=== PATIENT | male | born 2000 | race Caucasian/White ===

== ENCOUNTER 2021-09-11 13:40 | Outpatient (REF) | payer MEDICAID, SELFPAY ==
--- NOTE | ~2021-09-11 | XR_ITS ---
EXAMINATION: XR CERVICAL SPINE XR THORACIC SPINE XR LUMBAR SPINE CLINICAL INFORMATION: Pain. COMPARISON: None. TECHNIQUE: Cervical spine 5 views, thoracic spine 3 views, lumbar spine 3 views. FINDINGS: Cervical Spine: There is mild straightening of cervical lordosis. The vertebral heights and alignment are normal. There is loss of C4-C5 and C7-T1 disc heights. The rest of the disc heights are normal. The craniovertebral junction and the C1-C2 alignment are normal. No visible acute fracture, dislocation or subluxation seen. The prevertebral soft tissues are normal. The neural foramina are bilaterally patent. Thoracic Spine: There is normal thoracic kyphosis. The vertebral heights, alignment and disc heights are normal. There is no visible acute fracture, dislocation or subluxation seen. The paravertebral soft tissues are normal. Lumbar Spine: There is normal lumbar lordosis. The vertebral heights, alignment and disc heights are normal. No lytic or sclerotic process seen. The paravertebral soft tissues are normal. XR/XR lumbar spine 2-3V IMPRESSION: Degenerative disc changes C4-C5 and C7-T1 disc levels without any visible acute fracture or dislocation. The neural foramina are patent bilaterally. Unremarkable thoracic/dorsal spine exam. Unremarkable lumbar spine exam.
--- NOTE | ~2021-09-11 | XR_ITS ---
EXAMINATION: XR CERVICAL SPINE XR THORACIC SPINE XR LUMBAR SPINE CLINICAL INFORMATION: Pain. COMPARISON: None. TECHNIQUE: Cervical spine 5 views, thoracic spine 3 views, lumbar spine 3 views. FINDINGS: Cervical Spine: There is mild straightening of cervical lordosis. The vertebral heights and alignment are normal. There is loss of C4-C5 and C7-T1 disc heights. The rest of the disc heights are normal. The craniovertebral junction and the C1-C2 alignment are normal. No visible acute fracture, dislocation or subluxation seen. The prevertebral soft tissues are normal. The neural foramina are bilaterally patent. Thoracic Spine: There is normal thoracic kyphosis. The vertebral heights, alignment and disc heights are normal. There is no visible acute fracture, dislocation or subluxation seen. The paravertebral soft tissues are normal. Lumbar Spine: There is normal lumbar lordosis. The vertebral heights, alignment and disc heights are normal. No lytic or sclerotic process seen. The paravertebral soft tissues are normal. XR/XR thoracic spine 3V IMPRESSION: Degenerative disc changes C4-C5 and C7-T1 disc levels without any visible acute fracture or dislocation. The neural foramina are patent bilaterally. Unremarkable thoracic/dorsal spine exam. Unremarkable lumbar spine exam.
--- NOTE | ~2021-09-11 | XR_ITS ---
EXAMINATION: XR ELBOW, RIGHT XR ELBOW, LEFT CLINICAL INFORMATION: Elbow pain. History of wrestling. COMPARISON: 05/25/2018 and 06/15/2017. TECHNIQUE: AP, lateral, and oblique views of each elbow. FINDINGS: RIGHT ELBOW: Again seen is a 2.9 x 2.7 cm region of central lucency and peripheral sclerosis in the subchondral region of the trochlea and capitellum which may correspond to chronic changes of a subchondral infarct or a degenerative geode. A chronic osseous lesion is possible. This appearance is unchanged from prior. The joint is otherwise unremarkable. No joint space narrowing. No fracture or malalignment. No effusion. Soft tissues are normal. LEFT ELBOW: The bones and soft tissues are normal. No fracture or joint effusion. Alignment is anatomic. Joint spaces are maintained. XR/XR elbow LT 2V IMPRESSION: 1. Peripherally sclerotic subchondral abnormality at the left distal humerus is unchanged from 2018 and could correspond to chronic sequela of prior subchondral infarct or degenerative geode. Other non-aggressive osseous lesion is also possible. Consider further assessment with an MRI of the elbow with and without contrast, if warranted clinically. 2. Otherwise, normal radiographs of the elbows.
--- NOTE | ~2021-09-11 | XR_ITS ---
EXAMINATION: XR CERVICAL SPINE XR THORACIC SPINE XR LUMBAR SPINE CLINICAL INFORMATION: Pain. COMPARISON: None. TECHNIQUE: Cervical spine 5 views, thoracic spine 3 views, lumbar spine 3 views. FINDINGS: Cervical Spine: There is mild straightening of cervical lordosis. The vertebral heights and alignment are normal. There is loss of C4-C5 and C7-T1 disc heights. The rest of the disc heights are normal. The craniovertebral junction and the C1-C2 alignment are normal. No visible acute fracture, dislocation or subluxation seen. The prevertebral soft tissues are normal. The neural foramina are bilaterally patent. Thoracic Spine: There is normal thoracic kyphosis. The vertebral heights, alignment and disc heights are normal. There is no visible acute fracture, dislocation or subluxation seen. The paravertebral soft tissues are normal. Lumbar Spine: There is normal lumbar lordosis. The vertebral heights, alignment and disc heights are normal. No lytic or sclerotic process seen. The paravertebral soft tissues are normal. XR/XR cervical spine min 6V IMPRESSION: Degenerative disc changes C4-C5 and C7-T1 disc levels without any visible acute fracture or dislocation. The neural foramina are patent bilaterally. Unremarkable thoracic/dorsal spine exam. Unremarkable lumbar spine exam.
--- NOTE | ~2021-09-11 | XR_ITS ---
EXAMINATION: XR ELBOW, RIGHT XR ELBOW, LEFT CLINICAL INFORMATION: Elbow pain. History of wrestling. COMPARISON: 05/25/2018 and 06/15/2017. TECHNIQUE: AP, lateral, and oblique views of each elbow. FINDINGS: RIGHT ELBOW: Again seen is a 2.9 x 2.7 cm region of central lucency and peripheral sclerosis in the subchondral region of the trochlea and capitellum which may correspond to chronic changes of a subchondral infarct or a degenerative geode. A chronic osseous lesion is possible. This appearance is unchanged from prior. The joint is otherwise unremarkable. No joint space narrowing. No fracture or malalignment. No effusion. Soft tissues are normal. LEFT ELBOW: The bones and soft tissues are normal. No fracture or joint effusion. Alignment is anatomic. Joint spaces are maintained. XR/XR elbow RT 2V IMPRESSION: 1. Peripherally sclerotic subchondral abnormality at the left distal humerus is unchanged from 2018 and could correspond to chronic sequela of prior subchondral infarct or degenerative geode. Other non-aggressive osseous lesion is also possible. Consider further assessment with an MRI of the elbow with and without contrast, if warranted clinically. 2. Otherwise, normal radiographs of the elbows.
== END 2021-09-11 13:41 | disposition home or self-care (01) ==
LOC: HO.XRAY 13:40
PROVIDERS: Absent Provider Registered Nurse Community Health; PCP Internal Medicine; Visit Provider Chiropractor
DX: M25.521 Pain in right elbow (principal); M25.522 Pain in left elbow; M54.2 Cervicalgia; M54.50 Low back pain, unspecified; M54.6 Pain in thoracic spine
CPT/HCPCS: 72052; 72072; 72100; 73070

== ENCOUNTER → 2021-10-09 14:31 | Outpatient (BNVA) | payer MEDICAID, SELFPAY | PROVIDERS: PCP Internal Medicine; Visit Provider Physician Assistant | DX: M87.00 Idiopathic aseptic necrosis of unspecified bone (principal) | CPT/HCPCS: 99202 ==

== ENCOUNTER 2021-10-21 18:04 | Outpatient (REF) | payer MEDICAID, SELFPAY ==
--- NOTE | ~2021-10-21 | MR_ITS ---
EXAMINATION: MR ELBOW WITHOUT CONTRAST, RIGHT CLINICAL INFORMATION: Idiopathic aseptic necrosis. COMPARISON: X-ray 09/11/2021, 05/25/2018. TECHNIQUE: MR of the elbow without contrast was performed on a 1.5 Inna axial scanner. FINDINGS: BONE AND JOINTS: As seen on the prior x-rays, is a region of abnormal signal in the subchondral region of the capitellum-intercondylar region-trochlea. This measures approximately 1.9 cm AP, 2.9 cm transverse, 2 cm craniocaudal. Majority of this focus has bright T1 signal, low signal on T2 fat-sat, suggestive of fat. There is a well-defined sclerotic margin. There is no surrounding edema. The appearance is suggestive of avascular necrosis. Within this region, in the anterior subchondral region of the capitellum/intercondylar region, is a T2 bright focus measuring 0.5 x 0.9 x 1.1 cm (AP, transverse, craniocaudal). There is overlying cartilage thinning present. This focus could be related to evolving changes of more acute/subacute avascular necrosis superimposed on the chronic findings. Differential consideration include superimposed osteochondral lesion or degenerative geode. No loose or unstable osseous fragments identified. Nonaggressive osseous lesion remains a possibility. There is no evidence of acute fracture. Normal alignment at the elbow joint. No significant joint effusion. TENDONS AND MUSCLES: Biceps, brachialis, triceps tendons intact. Common flexor and common extensor tendons intact. No evidence of muscle tear. LIGAMENTS: Ulnar collateral ligament, radial collateral ligament, lateral ulnar collateral ligaments are intact. ULNAR NERVE: Within normal limits. MR/MR elbow RT wo con IMPRESSION: 1. Abnormality in the distal left humerus, in the region of the capitellum-intercondylar region-trochlear. This measures 1.9 x 2.9 x 2 cm. This lesion has a non-aggressive appearance, with non-aggressive features, peripheral sclerotic margin, as described above This has the appearance of a focus of avascular necrosis. A chronic non-aggressive osseous lesion remains a possibility. Within the above focus, in the subchondral region anteriorly, is a 0.5 x 0.9 x 1.1 cm T2 bright focus with peripheral sclerotic margins, with overlying cartilage thinning. This focus could be related to evolving changes of more acute/subacute avascular necrosis superimposed on chronic changes. Differential considerations would include superimposed osteochondral lesion, degenerative geode superimposed on the chronic findings. No loose or unstable fragments are seen. Recommend clinical correlation. Recommend ongoing clinical and radiographic follow-up. Recommend 3-6 month follow-up MRI for reassessment. 2. Tendons tendons intact.
== END 2021-10-21 18:05 | disposition home or self-care (01) ==
LOC: HO.MRI 18:04
PROVIDERS: Visit Provider Physician Assistant
DX: M87.00 Idiopathic aseptic necrosis of unspecified bone (principal)
CPT/HCPCS: 73221

== ENCOUNTER 2022-05-20 15:47 | Outpatient (REF) | payer MEDICAID, SELFPAY | END 2022-05-20 15:48 | disposition home or self-care (01) | LOC: HO.HOSX 15:47 | PROVIDERS: Visit Provider Orthopaedic Surgery | DX: Z13.89 Encounter for screening for other disorder (principal) ==

== ENCOUNTER 2024-05-14 11:24 | Outpatient (REF) | payer MEDICAID, SELFPAY ==
[2024-05-14 13:39] LABS: Estimated Average Glucose 105 mg/dL; Hemoglobin A1C 143.8123 umol/L; Hemoglobin A1c % 5.3 % (<6.0); Total Hemoglobin (HGBA1C) 4187.7587 umol/L
[2024-05-14 13:40] LABS: Alanine Aminotransferase 49 U/L (0-40); Albumin Level 4.3 g/dL (3.5-5.0); Alkaline Phosphatase 58 U/L (39-117); Anion Gap 12 (12-20); Aspartate Amino Transferase 28 U/L (5-37); Bilirubin Total 0.5 mg/dL (0.0-1.0); Blood Urea Nitrogen 12 mg/dL (9-16); Calcium 9.4 mg/dL (8.4-10.2); Carbon Dioxide 30 mmol/L (22-29); Chloride 105 mmol/L (96-108); Cholesterol 236 mg/dL (<200); Estimated Glomerular Filt Rate > 60; Glucose Random 98 mg/dL (60-115); HDL Cholesterol 43 mg/dL (>40); LDL Cholesterol Calculated 167 mg/dL (<100); Potassium 4.7 mmol/L (3.3-5.1); Sodium 142 mmol/L (135-145); Total Protein 7.7 g/dL (6.5-8.0); Triglycerides 131 mg/dL (<150)
[2024-05-14 13:56] LABS: TSH reflex Free T4 1.82 uIU/mL (0.32-4.0)
== END 2024-05-14 11:25 | disposition home or self-care (01) ==
LOC: HO.HHCL 11:24
PROVIDERS: Visit Provider Nurse Practitioner Primary Care
DX: F41.9 Anxiety disorder, unspecified (principal); F32.A Depression, unspecified; Z00.00 Encounter for general adult medical examination without abnormal findings; E78.00 Pure hypercholesterolemia, unspecified
CPT/HCPCS: 36415; 80053; 80061; 83036; 84443